=== PATIENT | female | born 1985 | race Caucasian/White ===

== ENCOUNTER → 2016-08-14 | Outpatient (CLI) | payer OTHER ==
[~2016-08-14] VITALS: Ht 144.8 cm; Wt 87.6 kg
[~2016-08-14] MED LIST: LEVA1.255 INH; LEVO1TAB35 PO; RBTDAC5 PO; RRIPRATNEB INH; SALI0.6510
--- NOTE | 2016-08-15 05:37 | PAP/PSG TECHNICIAN REPORT ---
[facility] [employer] Polysomnogram Report Study name: None Report date: 08/15/2016 Study date: 08/14/2016 Referring Physician: Ashley Gee PA-C Name: ELDER DUNNE Interpreting Physician: Jason Herrera M.D. Date of : 1985 Used Car Salesperson: SAVANNAH Pierre. Sex: Female Age: 30 StudyType: PSG PAP Weight: 190 lbs Height: 30 years, Height 4' 8" Neck Circum:16.5inches BMI: 42.59 Medications: no list provided. Patient History Study started on room air with 4cwp cpap in room #8. Her father is sleeping in the room with her. 30 yr old female with Down's Syndrome here tonight for a new titration study. She had a HST that had a RDI of 17.2 with severe nocturnal hypoxemia. Her neck circ=16.5inches. Parameters Monitored NPSG: E1-M2, E2-M1, Fp1-M2, Fp2-M1, F3-M2, F4-M2, F4-M1, C3-M2, C4-M2, C4-M1, O1-M2, O2-M2, O2-M1, T3-M2, T4-M1, P3-M2, P4-M1, CHIN1, CHIN2, HR, EKG, Legs, PFLOW, SNOR, FLOW, CFLOW, Tidal Volume, THOR, ABDO, SpO2, PLTH, CPRESS, ETCO2 Wave, ETCO2, pH Sleep Architecture Sleep Stages Time at Lights Off 9:25:50 PM STAGES Time (min.) TST (%) Time at Lights On 5:24:20 AM Wake 74.5 -- Total Recording Time (TRT) 473.50 min. N1 10.5 3 Total Sleep Period (TSP) 447.0 min. N2 242.5 61 Total Sleep Time (TST) 399.0min. N3 92.0 23 Awake Time 74.5 min. REM 54.0 14 Wake after Sleep Onset 52.5 min. Sleep Efficiency (SE) 84 % Sleep Onset Latency (ARJUN) 27.0 min. Number of Stage 1 Shifts None Awakenings 9 Stage Changes 57 Number of REM periods 9 REM 54.0 14 REM Latency 96.5 min. NREM 345.0 86 Body Position Analysis Supine Right Left Side Prone Vertical Total Sleep Time (min.) 433.9 30.8 0.0 30.79 0.0 0.0 Total Sleep Time (%) 92% 8% 0% 8 0% N/A% Total Sleep Time REM (min.) 39.0 15.0 0.0 None 0.0 0.0 Total Sleep Time NREM (min.) 329.2 15.8 0.0 None 0.0 0.0 Intermittent Wake (min.) 65.7 8.8 0.0 None 0.0 0.0 Total Sleep Period (%) 91% None None None None None Arousals Myoclonus (PLM) * Events Count Index Events Count Index Spontaneous 9 1 Events Awake (PLMW) 109 87.8 Respiratory 4 0.5 Events Asleep w/ Arousal (PLMA) 18 2.7 PLM 18 3 Events Asleep w/o Arousal (PLMS) 65 9.8 Snoring 4 1 Total Asleep 83 12.5 Total 35 5 Total 192 24 Respiratory Analysis * CA OA MA CH H RERA Total Count 0 0 0 0 26 0 26 Index 0.0 0.0 0.0 0 3.9 0 3.9 Mean Duration 0.0 0.0 0.0 0.00 28.8 0.0 28.8 Longest Duration 0.0 0.0 0.0 0.00 0.0 0.0 54.8 Respiratory Event Summary Total Supine ~Supine Right Left Prone REM NREM Apneas Count 0 0 0 0 N/A N/A 0 0 Index 0.0 0 0 0.0 N/A N/A 0 0 Hypopneas (4% Desat) Count 26 25 1 1 N/A N/A 2 24 Index 3.9 4.1 2 1.9 N/A N/A 2.2 4.2 Apneas & All Hypopneas Count 26 25 1 1 N/A N/A 2 24 Index 3.9 4 2 2 N/A N/A 2.2 4.2 Respiratory Events ([employer]+All Hyp+RERA) Count 26 25 1 1 N/A N/A 2 24 Index 3.9 4 2 1.9 N/A N/A 2.2 4.2 Respiratory Related Arousal Count 4 25 1 1 N/A N/A 1 2 Index 0.5 0 2 2 N/A N/A 1 0 Snoring Analysis Supine Right Left Prone REM NREM Total Snore duration 3.6 min Snores count 107 5 N/A N/A 10 102 112 Snore mean duration 2.0 Sec Snores index 17 10 N/A N/A 11.1 17.7 16.8 TST with snoring (%) 0.9% Desaturation Event Summary: Minimum %SpO2 Event Count Mean/Min/Max Duration(sec.) Desaturation Index % Time In Bed > 90 57 23.2 / 5.0 / 60.0 7.5 98.8 86 - 90 0 N/A 0.0 1.2 81 - 85 0 N/A 0.0 0.0 76 - 80 0 N/A 0.0 0.0 71 - 75 0 N/A 0.0 0.0 66 - 70 0 N/A 0.0 0.0 61 - 65 0 N/A 0.0 0.0 56 - 60 0 N/A 0.0 0.0 51 - 55 0 N/A 0.0 0.0 < 50 0 N/A 0.0 0.0 Total REM NREM Awake <50% 0.0 min. 0.0 min. 0.0 min. 0.0 min. 51 - 60% 0.0 min. 0.0 min. 0.0 min. 0.0 min. 61 - 70% 0.0 min. 0.0 min. 0.0 min. 0.0 min. 71 - 80% 0.0 min. 0.0 min. 0.0 min. 0.0 min. 81 - 90% 5.4 min. 0.0 min. 0.4 min. 5.1 min. 91 - 100% 456.9 min. 54.0 min. 344.4 min. 58.6 min. Average 94 96 94 94 Minimum SpO2 82 91 90 82 Desaturation Event Index 7.2 4.4 5.4 19.3 # Desat. Events below 89% 1 N/A N/A 1 Time(%) with Saturation below 89% 0.1 0.0 0.0 0.1 Time(min.) with Saturation below 89% 0.5 0.0 0.0 0.5 Time (mins) REM (mins) NREM (mins) % of TST SpO2 Below 90% 3 N/A N3 0.0 SpO2 Below 88% 0 0 0 0 Heart Rate Analysis Min (bpm) Max (bpm) Average (bpm) Awake 53 127 68 NREM 54 92 65 REM 56 81 68 Overall 54 92 65 Supplemental O2 Values Minimum O2 level: None Value Start Time End Time Used Car Salesperson Comments Miss Dunne slept in the right and supine positions. No cardiac arrhythmia noted. Some leg movements were noted. No bruxism noted. CPAP was initiated at +4 CMH2O and up-titrated to an optimal level of +7 CMH2O, which nearly eliminated all respiratory events and snoring. A small Quattro Air full face mask by [employer] was used during titration. She awoke to use the restroom 1 time during the night. She stated that she slept well. The final report will be interpreted and signed by a sleep physician. The completed physician report will then be placed in the patient medical record. Therapy Event: Therapy (cm H20) 4 5 6 7 Total Time at Pressure (min.) 108.0 77.0 240.8 47.7 TST at Pressure (min.) 80.5 76.0 195.3 47.2 # Periods 1 1 1 1 Sleep Onset (min.) 27.0 0.0 0.0 0.0 REM Onset (min.) N/A 15.5 39.0 11.2 Sleep Efficiency % 74 98 81 99 Wakefulness (%) 25.5 1.3 18.9 1.0 Wakefulness (min.) 27.5 1.0 45.5 0.5 NREM 1 (%) 3.7 0.0 1.9 4.2 NREM 1 (min.) 4.0 0.0 4.5 2.0 NREM 2 (%) 18.1 77.3 59.3 43.4 NREM 2 (min.) 19.5 59.5 142.8 20.7 NREM 3 (%) 52.8 16.9 9.1 0.0 NREM 3 (min.) 57.0 13.0 22.0 0.0 REM (%) 0.0 4.5 10.8 51.4 REM (min.) 0.0 3.5 26.0 24.5 # Arousals 5 12 15 3 Arousal Index 3.7 9.5 4.6 3.8 # Snore 7 16 56 33 Snore Index 5.2 12.6 17.2 42.0 AHI 3.7 4.7 4.0 2.5 AHI Supine 3.7 4.7 4.4 2.5 AHI Non-Supine N/A N/A 1.9 N/A NREM AHI 3.7 4.1 4.6 2.6 REM AHI N/A 17.1 0.0 2.4 RDI 3.7 4.7 4.0 2.5 # Obstructive 0 0 0 0 # Central Ap 0 0 0 0 # Mixed 0 0 0 0 # Hypopneas 5 6 13 2 RERAS 0 0 0 0 Total Respiratory Events 5 6 13 2 Time Below SpO2 89.00% (min.) 0.0 0.0 0.0 0.0 Mean NREM SpO2 (%) 93 94 95 96 Mean REM SpO2 (%) N/A 93 95 96 Mean Sleep SpO2 (%) 93 94 95 96 Min NREM SpO2 (%) 90 90 91 93 Min REM SpO2 (%) N/A 91 92 92 Position Supine (min.) 80.5 76.0 164.5 47.2 Position Non-supine (min.) 0.0 0.0 30.8 0.0 LM Index Sleep 11.9 15.8 12.9 6.4 LM Index NREM 11.9 14.9 13.5 2.6 LM Index REM N/A 34.3 9.2 9.8 Mean Heart Rate (bpm) 64 65 66 67 Min Heart Rate (bpm) 55 56 54 56
--- NOTE | 2016-08-16 11:55 | POLYSOMNOGRAPH REPORT ---
CLINICAL DATA: A 30-year-old female with BMI of 42.6 referred by Ashley Gee and myself as well as Isabelle Moore. The patient has Down syndrome. She had home sleep study that showed moderate sleep apnea with an RDI of 17.2 with severe nocturnal hypoxemia. SLEEP ARCHITECTURE: Total sleep period was 447 minutes. Total sleep time was 399 minutes divided between 345 minutes of non-REM sleep and 54 minutes of REM sleep. Sleep onset latency was 27 minutes. REM latency was 96.5 minutes. Sleep efficiency was 84%. Wake after sleep onset was 52.5 minutes. Sleep consisted of stage N1 3%, N2 61%, N3 23%, and REM 14%. AROUSAL DATA: 35 arousals were recorded for an index of 5 per hour. PLM DATA: 83 limb movements during sleep were noted for an index of 12.5 per hour with arousal index of 2.7 per hour. RESPIRATORY DATA: The AHI was 3.9. There were 26 hypopneic episodes. The mean duration of hypopnea was 28.8 seconds. OXIMETRY DATA: No hypoxemia was seen. Oxygen sarah was 90%. Mean saturation was 94%. EKG: Heart rate ranged from 54-92 beats per minute. No arrhythmias were noted. TREATMENT SUMMARY: The patient slept in the right and supine positions. CPAP was started using a small Quattro Air full facemask by [employer]. She was titrated up to a final pressure setting of 7 cm of water pressure. At that setting, the patient slept for 47 minutes with an AHI of 2.5. IMPRESSION: Moderate obstructive sleep apnea/hypopnea with nocturnal hypoxemia corrected with CPAP 7 cm of water pressure, small Quattro Air full facemask by [employer]. RECOMMENDATIONS: The patient will be seen back in followup and started on CPAP therapy. [facility]
[2016-08-20 14:07] VITALS: BP 113/51; PULSE 64; Ht 144.8 cm; Wt 87.6 kg
== END | disposition home or self-care (01) ==
LOC: C.NEUR 20:00
PROVIDERS: ATTEND Internal Medicine Pulmonary Disease
DX: R06.02 Shortness of breath (principal); E66.9 Obesity, unspecified; G47.30 Sleep apnea, unspecified; R09.02 Hypoxemia

== ENCOUNTER → 2016-10-15 | Outpatient (CLI) | payer OTHER ==
[~2016-10-15] VITALS: Ht 144.8 cm; Wt 86.6 kg
[~2016-10-15] MED LIST changes: -LEVO1TAB35 PO
[2016-10-15 16:31] VITALS: BP 131/82; PULSE 85; Ht 144.8 cm; Wt 86.6 kg
== END | disposition home or self-care (01) ==
LOC: C.NEUR 15:35
PROVIDERS: ATTEND Internal Medicine Pulmonary Disease
DX: G47.30 Sleep apnea, unspecified (principal)

== ENCOUNTER → 2016-10-17 | Outpatient (CLI) | payer OTHER ==
--- NOTE | 2016-10-17 11:02 | DIAGNOSTIC IMAGING REPORT ---
KUB CLINICAL HISTORY: Right lower quadrant abdominal pain. FINDINGS: 2 AP supine abdominal radiographs are obtained. No prior studies are available for comparison at the time of dictation. There is a nonobstructed abdominal bowel gas pattern noting moderate colonic fecal retention. No evidence of intraperitoneal free air is seen on these supine views. There are no abnormal abdominal calcifications. The bony structures appear intact. IMPRESSION: Moderate constipation. Electronically signed by: Eliud Núñez M.D. 10/17/2016 11:00 AM Dictated Date/Time: 10/17/2016 10:59 AM
== END | disposition home or self-care (01) ==
LOC: C.RADPV 10:45
PROVIDERS: ATTEND Family Medicine
DX: R10.813 Right lower quadrant abdominal tenderness (principal); K59.00 Constipation, unspecified

== ENCOUNTER → 2016-11-23 | Outpatient (CLI) | payer OTHER ==
--- NOTE | 2016-11-23 09:08 | DIAGNOSTIC IMAGING REPORT ---
ULTRASOUND ABDOMINAL WALL NONVASCULAR CLINICAL HISTORY: Right lower quadrant abdominal pain. Clinical concern for hernia. COMPARISON STUDY: KUB dated 10/17/2016. FINDINGS: Real-time grayscale sonography of the right lower quadrant and right groin is performed to assess for hernia. There is no sonographic evidence of right inguinal hernia. No hernia could be elicited by having the patient perform the Valsalva maneuver. There is no sonographic evidence of hernia in the right lower quadrant abdominal wall at the indicated site of interest. IMPRESSION: There is no sonographic evidence of right lower quadrant abdominal wall or right inguinal hernia Electronically signed by: Eliud Núñez M.D. 11/23/2016 9:06 AM Dictated Date/Time: 11/23/2016 9:05 AM
== END | disposition home or self-care (01) ==
LOC: C.ULTR 07:59
PROVIDERS: ATTEND Family Medicine
DX: R10.813 Right lower quadrant abdominal tenderness (principal)

== ENCOUNTER → 2016-12-05 | Outpatient (CLI) | payer OTHER ==
--- NOTE | 2016-12-05 16:23 | DIAGNOSTIC IMAGING REPORT ---
RIGHT HIP UNILATERAL 2 VIEWS CLINICAL HISTORY: Right hip pain COMPARISON: None. DISCUSSION: No acute fractures are visualized. No destructive lesions are evident. A small joint effusion cannot be excluded. There is a small peritrochanteric calcification. IMPRESSION: No fractures identified. Electronically signed by: Galdino Max M.D. 12/05/2016 4:21 PM Dictated Date/Time: 12/05/2016 4:18 PM
== END | disposition home or self-care (01) ==
LOC: C.RADPV 16:02
PROVIDERS: ATTEND Family Medicine
DX: M25.551 Pain in right hip (principal)

== ENCOUNTER → 2017-03-29 | Outpatient (CLI) | payer OTHER ==
[2017-03-29 13:11] LABS: BLOOD UREA NITROGEN 16 mg/dl (7-18); BUN/CREATININE RATIO 17.7 (10-20); CALCIUM 8.8 mg/dl (8.5-10.1); CARBON DIOXIDE 29 mmol/L (21-32); CHLORIDE 105 mmol/L (98-107); CREATININE 0.88 mg/dl (0.60-1.20); GLUCOSE 101 mg/dl (70-99); POTASSIUM 3.9 mmol/L (3.5-5.1); SODIUM 138 mmol/L (136-145)
[2017-03-29 13:22] LABS: CHOLESTEROL 152 mg/dl (0-200); CHOLESTEROL/HDL RATIO 2.7; HDL CHOLESTEROL 57 mg/dl; LDL CHOLESTEROL CALCULATED 72 mg/dl; TRIGLYCERIDES 113 mg/dl (0-150); VERY LOW DENSITY LIPOPROT CALC 23 mg/dl
== END | disposition home or self-care (01) ==
LOC: C.LABPVFM 08:27
PROVIDERS: ATTEND Family Medicine
DX: Z13.1 Encounter for screening for diabetes mellitus (principal); Z13.220 Encounter for screening for lipoid disorders

== ENCOUNTER → 2017-04-09 | Outpatient (CLI) | payer OTHER ==
[~2017-04-09] VITALS: Ht 146.1 cm; Wt 83.3 kg
[2017-04-09 14:21] VITALS: BP 105/61; PULSE 66; Ht 146.1 cm; Wt 83.3 kg
== END | disposition home or self-care (01) ==
LOC: C.NEUR 13:32
PROVIDERS: ATTEND Internal Medicine Pulmonary Disease
DX: G47.30 Sleep apnea, unspecified (principal); Q90.2 Trisomy 21, translocation